=== PATIENT | male | born 1985 | race Caucasian/White ===

== ENCOUNTER 2017-03-22 14:20 | Emergency (ER) | payer OTHER ==
[~2017-03-22] VITALS: Ht 193 cm; Wt 79.5 kg
[2017-03-22 14:22] VITALS: BP 105/54; PULSE 86; RESP 14; TEMP 98.6; O2SAT 97
[2017-03-22] MEDS ORDERED: GABA300C5 PO (14:58)
[2017-03-22] MEDS ORDERED: BUSP15TA PO (14:58)
[2017-03-22] MEDS ORDERED: SERO300T PO (14:58)
--- NOTE | 2017-03-22 15:58 | PD ---
HPI Chief Complaint: Psychiatric Symptoms Time Seen by Provider: 15:18 Travel History International Travel<30 days: No Contact w/Intl Traveler<30days: No Traveled to known affect area: No History of Present Illness HPI 31-year-old male that presents to the ED for evaluation of voluntary psych. Patient reports that his been having suicidal thoughts secondary to substance abuse. Per patient his been in and out of addiction for some time. Per patient he last is about 24 hours ago. He called the police who brought him here. Denies any chest or shortness of breath. Per patient he has not done any IV for about 4 months but he did snort cocaine and heroine yesterday. Denies any other medical issues. Per patient he takes no medications currently. He comes here for help. He can here voluntarily and noticed of Amin act. Denies any injuries or cuts. Symptoms appear to have worsened secondary to current stressors from losing his job. Allergy to cheese. PFSH Past Medical History Anxiety: Yes Diminished Hearing: No Immunizations Current: Yes Past Surgical History Surgical History: No Previous Surgery Social History Alcohol Use: Yes (SOCIALLY) Tobacco Use: Yes (SOCIALLY) Substance Use: Yes (CRACK AND HERION 5 TIMES IN PAST MONTH. 90 DAYS CLEAN PRIOR. HX 10 YEARS ) Allergies-Medications (Allergen,Severity, Reaction): Coded Allergies: cheese (Verified Adverse Reaction, Unknown, Diarrhea, 03/22/17) Reported Meds & Prescriptions Reported Meds & Active Scripts Active Reported Gabapentin 300 Mg Cap 300 Mg PO TID Buspirone (Buspirone HCl) 15 Mg Tab 15 Mg PO BID Seroquel (Quetiapine Fumarate) 300 Mg Tab 300 Mg PO HS Review of Systems Except as stated in HPI: all other systems reviewed are Neg Physical Exam Narrative GENERAL: SKIN: Warm and dry. HEAD: Atraumatic. Normocephalic. EYES: Pupils equal and round. No scleral icterus. No injection or drainage. ENT: No nasal bleeding or discharge. Mucous membranes pink and moist. Tongue is midline. No uvula deviation. NECK: Trachea midline. No JVD. CARDIOVASCULAR: Regular rate and rhythm. No murmurs, S3, S4. RESPIRATORY: No accessory muscle use. Clear to auscultation. Breath sounds equal bilaterally. GASTROINTESTINAL: Abdomen soft, non-tender, nondistended. Hepatic and splenic margins not palpable. MUSCULOSKELETAL: Extremities without clubbing, cyanosis, or edema. No obvious deformities. Full range of motion of the upper and lower extremities bilaterally. 2+ pulses bilaterally. NEUROLOGICAL: Awake and alert. No obvious cranial nerve deficits. Motor grossly within normal limits. Five out of 5 muscle strength in the arms and legs. Normal speech. PSYCHIATRIC: Appropriate mood and affect; insight and judgment normal. Data Data Last Documented VS Vital Signs Date Time Temp Pulse Resp B/P (MAP) Pulse Ox O2 Delivery O2 Flow Rate FiO2 03/22/17 14:22 98.6 86 14 105/54 (71) 97 Orders Orders Diet Regular Basic (03/22/17 Dinner) Complete Blood Count With Diff (03/22/17 15:18) Comprehensive Metabolic Panel (03/22/17 15:18) Thyroid Stimulating Hormone (03/22/17 15:18) Psych Screen (03/22/17 15:18) Drug Screen, Random Urine (03/22/17 15:18) Alcohol (Ethanol) (03/22/17 15:18) Salicylates (Aspirin) (03/22/17 15:18) Tylenol (Acetaminophen) (03/22/17 15:18) MDM Medical Decision Making Medical Screen Exam Complete: Yes Emergency Medical Condition: Yes Medical Record Reviewed: Yes Differential Diagnosis Depression versus suicidal ideation versus anxiety versus adjustment disorder versus mood disorder versus bipolar disorder versus schizophrenia versus paranoid disorder versus psychosis versus substance abuse versus alcohol abuse versus alcohol induced psychosis versus homicidality addition versus cutting versus personality disorder Narrative Course 31-year-old male that presents to the ED for evaluation of psych. Patient was properly examined and was found to have signs and symptoms consistent with psychiatric illness. Likely from polysubstance abuse. Labs were drawn. Patient was medically cleared. Okay to be seen by psych. Mental health screening was discussed with the patient. Diagnosis Primary Impression: Polysubstance abuse Gen Vieira Mar 22, 2017 15:58
[2017-03-22 15:59] LABS: BASOPHIL % 0.4 % (0.0-2.0); EOSINOPHIL % 0.5 % (0.0-4.0); HEMOGLOBIN 13.5 GM/DL (13.0-17.0); LYMPH % 32.2 % (9.0-44.0); LYMPHOCYTE # 2.7 TH/MM3 (1.0-4.8); MEAN CELL VOLUME 84.3 FL (80.0-100.0); MEAN CORPUSCULAR HEMOGLOBIN 29.9 PG (27.0-34.0); MEAN CORPUSCULAR HGB CONC 35.4 % (32.0-36.0); MEAN PLATELET VOLUME 9.1 FL (7.0-11.0); MONO % 8.2 % (0.0-8.0); MONOCYTE # 0.7 TH/MM3 (0-0.9); NEUT % 58.7 % (16.0-70.0); PLATELET COUNT 229 TH/MM3 (150-450); RED BLOOD COUNT 4.51 MIL/MM3 (4.50-5.90); RED CELL DISTRIBUTION WIDTH 13.1 % (11.6-17.2); WHITE BLOOD COUNT 8.5 TH/MM3 (4.0-11.0)
[2017-03-22 16:24] LABS: ALBUMIN 4.3 GM/DL (3.4-5.0); ALKALINE PHOSPHATASE 51 U/L (45-117); ALT (GPT) 13 U/L (12-78); AST (GOT) 21 U/L (15-37); BICARBONATE 28.3 MEQ/L (21.0-32.0); BLOOD UREA NITROGEN 10 MG/DL (7-18); CALCIUM 9.3 MG/DL (8.5-10.1); CHLORIDE 101 MEQ/L (98-107); CREATININE 0.85 MG/DL (0.60-1.30); GLOMERULAR FILTRATION RATE 107 ML/MIN (>89); GLUCOSE,RANDOM 82 MG/DL (74-106); SODIUM (NA) 137 MEQ/L (136-145); TOTAL BILIRUBIN ADULT 1.6 MG/DL (0.2-1.0); TOTAL PROTEIN 7.2 GM/DL (6.4-8.2)
[2017-03-22 16:26] LABS: ACETAMINOPHEN LESS THAN 2.0 MCG/ML (10.0-30.0)
[2017-03-22 18:35] VITALS: BP 106/56; PULSE 69; RESP 20
[2017-03-22 22:06] VITALS: BP 110/61; PULSE 53; RESP 18; TEMP 99.9; O2SAT 99
[2017-03-23 02:03] VITALS: BP 94/55; PULSE 60; RESP 18; TEMP 99.1; O2SAT 100
[2017-03-23 06:33] VITALS: BP 104/57; PULSE 51; RESP 18; TEMP 98.5; O2SAT 99
--- NOTE | 2017-03-23 13:37 | PD ---
History of Present Illness Chief Complaint: Psychiatric Symptoms Time Seen by Provider: 13:20 Travel History International Travel<30 Days: No Contact w/Intl Traveler<30days: No Known affected area: No Legal Status Legal Status: Voluntary History of Present Illness: History of Present Illness HPI 31-year-old male with no psychiatric history and history of substance abuse that presents to the ED on a voluntary basis requesting a psychiatric evaluation . He reported to the ED provider that he was having suicidal thoughts secondary to substance abuse. He called the police for help and they brought him here. The patient was monitored in secure environment and presented no behavioral concerns and no suicidality. Electronic medical record is reviewed. No previous contact with [facility] psychiatry. Current toxicology is positive for opiates and cocaine. Patient is seen in [facility]. He is alert, oriented, calm and engaging. Speech is clear, logical, goal-directed. There is no psychosis, no ochoa or hypomania. The patient states that he had been staying at a sober living facility and got kicked out due to several reasons including missing curfew and a dirty urine. He was told he could not go back until he was detoxed. He is requesting now for a detox services as well as continue substance abuse treatment. He states that he wants to go back to [facility] once he meets the requirements for readmission to their sober living house. There is no suicidal or homicidal ideation, intent or plan. Does not present any evidence of any unstable mental illness. PFSH Past Medical History Anxiety: Yes Diminished Hearing: No Immunizations Current: Yes Past Surgical History Surgical History: No Previous Surgery Psychiatric History Psychiatric History Hx Psychiatric Treatment: Denies any previous psychiatric history. Does report one previous Amin act in context of substance abuse and after he had nowhere else to stay because his family was not supportive. History of Inpatient Treatment: No Guns or firearms in home: No Social History Single male originally from [place]. Staying at a sober living facility. Hx Alcohol Use: Yes (SOCIALLY) Hx Tobacco Use: Yes (SOCIALLY) Hx Substance Use: Yes (CRACK AND HERION 5 TIMES IN PAST MONTH. 90 DAYS CLEAN PRIOR. HX 10 YEARS ) Substance Use Type: Crack, Marijuana, Heroin, Cocaine Hx of Substance Use Treatment: Yes (ten-year history of heroin abuse. At least 5 admissions for substance abuse.) Family Psychiatric History Negative Allergies-Medications (Allergen,Severity, Reaction): Coded Allergies: cheese (Verified Adverse Reaction, Unknown, Diarrhea, 03/22/17) Reported Meds & Prescriptions Reported Meds & Active Scripts Active Reported Gabapentin 300 Mg Cap 300 Mg PO TID Buspirone (Buspirone HCl) 15 Mg Tab 15 Mg PO BID Seroquel (Quetiapine Fumarate) 300 Mg Tab 300 Mg PO HS Review of Systems Psychiatric: DENIES: Anxiety, Confusion, Mood changes, Depression, Hallucinations, Agitation, Suicidal Ideation, Homicidal Ideation, Delusions Except as stated in HPI: all other systems reviewed are Neg Mental Status Examination Appearance: Appropriate (in hospital attire and maintaining hygiene) Consciousness: Alert Orientation: x4 Motor Activity: Normal gait Speech: Unremarkable Language: Adequate Fund of Knowledge: Adequate Attention and Concentration: Adequate Memory: Unremarkable Mood: Appropriate Affect: Appropriate Thought Process & Associations: Intact, Logical, Goal directed Thought Content: Appropriate Hallucination Type: None Delusion Type: None Suicidal Ideation: No Suicidal Plan: No Suicidal Intention: No Homicidal Ideation: No Homicidal Plan: No Homicidal Intention: No Insight: Fair Judgment: Adequate MDM Medical Decision Making Medical Record Reviewed: Yes Assessment/Plan 31-year-old male with no previous psychiatric history and history of substance abuse with drug of choice being heroin and cocaine, who in context of being discharged from sober living facility after he tested positive for heroin and cocaine, called the police to bring him to the hospital for psychiatric evaluation. The patient reported to ED provider that he was having suicidal thoughts. The patient presents no evidence of unstable mental illness as defined under the Amin act. He has presented no behavioral concerns and no suicidality while under observation. The patient is future oriented and is wanting to have detox so that he can return to his sober living facility in the next 3 days. He I saps bus passes to [facility] where he can be provided substance abuse treatment that he is looking for. The patient is psychiatrically clear for discharge. Orders Orders Diet Regular Basic (03/22/17 Dinner) Complete Blood Count With Diff (03/22/17 15:18) Comprehensive Metabolic Panel (03/22/17 15:18) Thyroid Stimulating Hormone (03/22/17 15:18) Psych Screen (03/22/17 15:18) Drug Screen, Random Urine (03/22/17 15:18) Alcohol (Ethanol) (03/22/17 15:18) Salicylates (Aspirin) (03/22/17 15:18) Tylenol (Acetaminophen) (03/22/17 15:18) Diet Regular Basic (03/23/17 Breakfast) Diet Regular Basic (03/23/17 Lunch) Results Vital Signs Date Time Temp Pulse Resp B/P (MAP) Pulse Ox O2 Delivery O2 Flow Rate FiO2 03/23/17 06:33 98.5 51 18 104/57 (73) 99 Room Air 03/23/17 02:03 99.1 60 18 94/55 (68) 100 Room Air 03/22/17 22:06 99.9 53 18 110/61 (77) 99 Room Air 03/22/17 18:35 69 20 106/56 (73) Room Air 03/22/17 14:22 98.6 86 14 105/54 (71) 97 Laboratory Tests Test 03/22/17 15:35 03/23/17 10:00 White Blood Count 8.5 Red Blood Count 4.51 Hemoglobin 13.5 Hematocrit 38.0 Mean Corpuscular Volume 84.3 Mean Corpuscular Hemoglobin 29.9 Mean Corpuscular Hemoglobin Concent 35.4 Red Cell Distribution Width 13.1 Platelet Count 229 Mean Platelet Volume 9.1 Neutrophils (%) (Auto) 58.7 Lymphocytes (%) (Auto) 32.2 Monocytes (%) (Auto) 8.2 Eosinophils (%) (Auto) 0.5 Basophils (%) (Auto) 0.4 Neutrophils # (Auto) 5.0 Lymphocytes # (Auto) 2.7 Monocytes # (Auto) 0.7 Eosinophils # (Auto) 0.0 Basophils # (Auto) 0.0 CBC Comment DIFF FINAL Differential Comment Blood Urea Nitrogen 10 Creatinine 0.85 Random Glucose 82 Total Protein 7.2 Albumin 4.3 Calcium Level 9.3 Alkaline Phosphatase 51 Aspartate Amino Transf (AST/SGOT) 21 Alanine Aminotransferase (ALT/SGPT) 13 Total Bilirubin 1.6 Sodium Level 137 Potassium Level 3.7 Chloride Level 101 Carbon Dioxide Level 28.3 Anion Gap 8 Estimat Glomerular Filtration Rate 107 Thyroid Stimulating Hormone 3rd Gen 0.879 Salicylates Level LESS THAN 1.7 Acetaminophen Level LESS THAN 2.0 Ethyl Alcohol Level LESS THAN 3 Urine Opiates Screen POS Urine Barbiturates Screen NEG Urine Amphetamines Screen NEG Urine Benzodiazepines Screen NEG Urine Cocaine Screen POS Urine Cannabinoids Screen NEG Diagnosis Primary Impression: Polysubstance abuse Additional Impressions: Cocaine abuse Opiate addiction Psychiatrically Cleared: Yes Med/ Other Pt Specific Info: No Meds Exist/No RX given Disposition: 01 DISCHARGE HOME Condition: Stable Problem Qualifiers Additional Impressions: Opiate addiction Qualified Codes: F11.20 - Opioid dependence, uncomplicated Paty Rojas [facility] Mar 23, 2017 13:37
--- NOTE | 2017-03-23 13:41 | PD ---
Physical Exam Date Seen by Provider: Mar 23, 2017 Time Seen by Provider: 13:39 Narrative 31-year-old male previously medically cleared for psychiatric evaluation, and has been seen by psychiatric staff and determined to be stable for discharge. Patient remains medically stable for discharge. Follow-up will be based on psychiatric note. Data Data Last Documented VS Vital Signs Date Time Temp Pulse Resp B/P (MAP) Pulse Ox O2 Delivery O2 Flow Rate FiO2 03/23/17 06:33 98.5 51 18 104/57 (73) 99 Room Air Orders Orders Diet Regular Basic (03/22/17 Dinner) Complete Blood Count With Diff (03/22/17 15:18) Comprehensive Metabolic Panel (03/22/17 15:18) Thyroid Stimulating Hormone (03/22/17 15:18) Psych Screen (03/22/17:18) Drug Screen, Random Urine (03/22/17:18) Alcohol (Ethanol) (03/22/17 15:18) Salicylates (Aspirin) (03/22/17 15:18) Tylenol (Acetaminophen) (03/22/17 15:18) Diet Regular Basic (03/23/17 Breakfast) Diet Regular Basic (03/23/17 Lunch) Labs Laboratory Tests Test 03/22/17 15:35 03/23/17 10:00 White Blood Count 8.5 TH/MM3 Red Blood Count 4.51 MIL/MM3 Hemoglobin 13.5 GM/DL Hematocrit 38.0 % Mean Corpuscular Volume 84.3 FL Mean Corpuscular Hemoglobin 29.9 PG Mean Corpuscular Hemoglobin Concent 35.4 % Red Cell Distribution Width 13.1 % Platelet Count 229 TH/MM3 Mean Platelet Volume 9.1 FL Neutrophils (%) (Auto) 58.7 % Lymphocytes (%) (Auto) 32.2 % Monocytes (%) (Auto) 8.2 % Eosinophils (%) (Auto) 0.5 % Basophils (%) (Auto) 0.4 % Neutrophils # (Auto) 5.0 TH/MM3 Lymphocytes # (Auto) 2.7 TH/MM3 Monocytes # (Auto) 0.7 TH/MM3 Eosinophils # (Auto) 0.0 TH/MM3 Basophils # (Auto) 0.0 TH/MM3 CBC Comment DIFF FINAL Differential Comment Blood Urea Nitrogen 10 MG/DL Creatinine 0.85 MG/DL Random Glucose 82 MG/DL Total Protein 7.2 GM/DL Albumin 4.3 GM/DL Calcium Level 9.3 MG/DL Alkaline Phosphatase 51 U/L Aspartate Amino Transf (AST/SGOT) 21 U/L Alanine Aminotransferase (ALT/SGPT) 13 U/L Total Bilirubin 1.6 MG/DL Sodium Level 137 MEQ/L Potassium Level 3.7 MEQ/L Chloride Level 101 MEQ/L Carbon Dioxide Level 28.3 MEQ/L Anion Gap 8 MEQ/L Estimat Glomerular Filtration Rate 107 ML/MIN Thyroid Stimulating Hormone 3rd Gen 0.879 uIU/ML Salicylates Level LESS THAN 1.7 MG/DL Acetaminophen Level LESS THAN 2.0 MCG/ML Ethyl Alcohol Level LESS THAN 3 MG/DL Urine Opiates Screen POS Urine Barbiturates Screen NEG Urine Amphetamines Screen NEG Urine Benzodiazepines Screen NEG Urine Cocaine Screen POS Urine Cannabinoids Screen NEG MDM Medical Record Reviewed: Yes Supervised Visit with DARNELL: Yes Narrative Course 31-year-old male previously medically cleared for psychiatric evaluation, and has been seen by psychiatric staff and determined to be stable for discharge. Patient remains medically stable for discharge. Follow-up will be based on psychiatric note. Diagnosis Primary Impression: Polysubstance abuse Additional Impressions: Cocaine abuse Opiate addiction Qualified Codes: F11.20 - Opioid dependence, uncomplicated Patient Instructions: General Instructions Disposition: 01 DISCHARGE HOME Condition: Stable Tee Meza Mar 23, 2017 13:41
== END 2017-03-23 13:54 | disposition home or self-care (01) ==
LOC: NEPJ 14:20
DX: F14.10 Cocaine abuse, uncomplicated (principal); F11.20 Opioid dependence, uncomplicated; R45.851 Suicidal ideations; F41.9 Anxiety disorder, unspecified; Z72.0 Tobacco use
CPT/HCPCS: 80053; 80307; 84443; 85025; 99283

== ENCOUNTER 2017-04-08 20:54 | Emergency (ER) | payer SELFPAY ==
[~2017-04-08] VITALS: Ht 185.4 cm; Wt 75.0 kg
[~2017-04-08 20:54] MED LIST: BUSP15TA PO; GABA300C5 PO; SERO300T PO
[2017-04-08 21:03] VITALS: BP 142/72; PULSE 74; RESP 16; TEMP 98; O2SAT 99
--- NOTE | 2017-04-08 21:13 | PD ---
HPI Chief Complaint: OD/ Ingestion Time Seen by Provider: 21:09 Travel History International Travel<30 days: No Contact w/Intl Traveler<30days: No Traveled to known affect area: No History of Present Illness HPI 31-year-old male with history of substance abuse presents to the emergency department by EMS transport after roommates reportedly found him in the bathroom unresponsive. EMS arrived and noted him to have depressed respirations and decreased level of consciousness. Patient was administered 0.8 of Narcan with return of GCS of 15. Patient admits to using heroin yesterday. Patient has history of heroin abuse and cocaine abuse. Patient is also followed us her [facility] facility for mood disorder/bipolar disorder. Patient has been out of his medications for several weeks to months. Patient does not report being suicidal or homicidal. Patient reportedly was sitting on the toilet when he was injecting heroin is unknown whether he was found on the floor or on the toilet. Patient denies any head pain neck pain back pain chest pain abdominal pain or extremity pain. PFSH Past Medical History Narrative Medical Anxiety polysubstance abuse; nursing notes reviewed Anxiety: Yes Diminished Hearing: No Immunizations Current: Yes Social History Alcohol Use: Yes (SOCIALLY) Tobacco Use: Yes (SOCIALLY) Substance Use: Yes (CRACK AND HERION 5 TIMES IN PAST MONTH. 90 DAYS CLEAN PRIOR. HX 10 YEARS ) Allergies-Medications (Allergen,Severity, Reaction): Coded Allergies: cheese (Verified Adverse Reaction, Unknown, Diarrhea, 04/08/17) Reported Meds & Prescriptions Reported Meds & Active Scripts Active Reported Gabapentin 300 Mg Cap 300 Mg PO TID Buspirone (Buspirone HCl) 15 Mg Tab 15 Mg PO BID Seroquel (Quetiapine Fumarate) 300 Mg Tab 300 Mg PO HS Review of Systems Except as stated in HPI: all other systems reviewed are Neg Physical Exam Narrative GENERAL: Well-developed well-nourished male no acute distress no respiratory distress; GCS 15 SKIN: Warm and dry. HEAD: Atraumatic. Normocephalic. No scalp soft tissue swelling hematoma abrasion or laceration EYES: Pupils equal and round. No scleral icterus. No injection or drainage. ENT: No nasal bleeding or discharge. Mucous membranes pink and moist. NECK: Trachea midline. No JVD. No midline tenderness to direct palpation along the cervical spine no bony step-off. CARDIOVASCULAR: Regular rate and rhythm. RESPIRATORY: No accessory muscle use. Clear to auscultation. Breath sounds equal bilaterally. GASTROINTESTINAL: Abdomen soft, non-tender, nondistended. Hepatic and splenic margins not palpable. MUSCULOSKELETAL: Extremities without clubbing, cyanosis, or edema. No obvious deformities. NEUROLOGICAL: Awake and alert. No obvious cranial nerve deficits. Motor grossly within normal limits. Five out of 5 muscle strength in the arms and legs. Normal speech. PSYCHIATRIC: Appropriate mood and affect; insight and judgment normal. Data Data Last Documented VS Vital Signs Date Time Temp Pulse Resp B/P (MAP) Pulse Ox O2 Delivery O2 Flow Rate FiO2 04/08/17 21:03 98.0 74 16 142/72 (95) 99 Orders Orders Electrocardiogram (04/08/17 21:09) Complete Blood Count With Diff (04/08/17 21:09) Comprehensive Metabolic Panel (04/08/17 21:09) Urinalysis - C+S If Indicated (04/08/17 21:09) Chest, Single Ap (04/08/17 21:09) Ct Brain W/O Iv Contrast(Rout) (04/08/17 21:09) Iv Access Insert/Monitor (04/08/17 21:09) Ecg Monitoring (04/08/17 21:09) Oximetry (04/08/17 21:09) Psych Screen (04/08/17 21:09) Sodium Chloride 0.9% Flush (Ns Flush) (04/08/17 21:15) Drug Screen, Random Urine (04/08/17 21:09) Alcohol (Ethanol) (04/08/17 21:09) Salicylates (Aspirin) (04/08/17 21:09) Tylenol (Acetaminophen) (04/08/17 21:09) Potassium Chloride (Kcl) (04/08/17 22:30) D-Dimer (04/08/17 22:50) Magnesium (Mg) (04/08/17 21:20) Ed Discharge Order (04/09/17 01:56) Labs Laboratory Tests Test 04/08/17 21:20 04/08/17 23:00 04/09/17 00:00 White Blood Count 6.2 TH/MM3 Red Blood Count 4.85 MIL/MM3 Hemoglobin 14.4 GM/DL Hematocrit 41.7 % Mean Corpuscular Volume 85.9 FL Mean Corpuscular Hemoglobin 29.7 PG Mean Corpuscular Hemoglobin Concent 34.6 % Red Cell Distribution Width 13.4 % Platelet Count 224 TH/MM3 Mean Platelet Volume 9.7 FL Neutrophils (%) (Auto) 61.2 % Lymphocytes (%) (Auto) 27.4 % Monocytes (%) (Auto) 8.4 % Eosinophils (%) (Auto) 2.5 % Basophils (%) (Auto) 0.5 % Neutrophils # (Auto) 3.8 TH/MM3 Lymphocytes # (Auto) 1.7 TH/MM3 Monocytes # (Auto) 0.5 TH/MM3 Eosinophils # (Auto) 0.2 TH/MM3 Basophils # (Auto) 0.0 TH/MM3 CBC Comment DIFF FINAL Differential Comment Blood Urea Nitrogen 5 MG/DL Creatinine 0.87 MG/DL Random Glucose 174 MG/DL Total Protein 6.7 GM/DL Albumin 3.9 GM/DL Calcium Level 8.8 MG/DL Magnesium Level 2.0 MG/DL Alkaline Phosphatase 88 U/L Aspartate Amino Transf (AST/SGOT) 85 U/L Alanine Aminotransferase (ALT/SGPT) 51 U/L Total Bilirubin 1.4 MG/DL Sodium Level 137 MEQ/L Potassium Level 3.1 MEQ/L Chloride Level 99 MEQ/L Carbon Dioxide Level 28.0 MEQ/L Anion Gap 10 MEQ/L Estimat Glomerular Filtration Rate 104 ML/MIN Salicylates Level 1.9 MG/DL Acetaminophen Level LESS THAN 2.0 MCG/ML Ethyl Alcohol Level LESS THAN 3 MG/DL D-Dimer Quantitative (PE/DVT) 0.43 MG/L FEU Urine Color YELLOW Urine Turbidity CLEAR Urine pH 6.0 Urine Specific [place] 1.022 Urine Protein 30 mg/dL Urine Glucose (UA) NEG mg/dL Urine Ketones 150 mg/dL Urine Occult Blood NEG Urine Nitrite NEG Urine Bilirubin NEG Urine Urobilinogen 2.0 MG/DL Urine Leukocyte Esterase NEG Urine RBC LESS THAN 1 /hpf Urine WBC 1 /hpf Urine Squamous Epithelial Cells <1 /hpf Urine Bacteria RARE /hpf Urine Hyaline Casts 28 /lpf Urine Granular Casts 3 /lpf Urine Mucus FEW /lpf Microscopic Urinalysis Comment CULT NOT INDICATED Urine Opiates Screen POS Urine Barbiturates Screen NEG Urine Amphetamines Screen NEG Urine Benzodiazepines Screen NEG Urine Cocaine Screen POS Urine Cannabinoids Screen NEG MDM Medical Decision Making Medical Screen Exam Complete: Yes Emergency Medical Condition: Yes Medical Record Reviewed: Yes Interpretation(s) EKG: Sinus bradycardia rate 50 RBBB Last Impressions Head CT 04/08/172108 Signed Impressions: Service Date/Time: Saturday, April 08, 2017 22:00 - CONCLUSION: No acute disease. Fabiano Vallejo MD Chest X-Ray 04/08/172108 Signed Impressions: Service Date/Time: Saturday, April 08, 2017 21:30 - CONCLUSION: No acute disease. Fabiano Vallejo MD CBC & BMP Diagram 04/08/17 21:20 Total Protein 6.7, Albumin 3.9, Calcium Level 8.8, Alkaline Phosphatase 88, Aspartate Amino Transf (AST/SGOT) 85 H, Alanine Aminotransferase (ALT/SGPT) 51, Total Bilirubin 1.4 H Vital Signs Date Time Temp Pulse Resp B/P (MAP) Pulse Ox O2 Delivery O2 Flow Rate FiO2 04/08/17 21:03 98.0 74 16 142/72 (95) 99 Differential Diagnosis Polysubstance abuse, alcohol intoxication, heroin abuse/overdose Narrative Course Patient placed on cardiac/vascular sonographer IV access obtained specimens collected and sent for resulting; as known is present to identify where the patient did or did not have a fall CT brain noncontrast will be ordered Patient's potassium replaced with oral potassium 40 mEq by mouth It's now 1 AM patient remains hemodynamically stable and GCS has remained 15 since arrival to the emergency department Patient will be seen by psych screener; voluntarily Diagnosis Primary Impression: Polysubstance abuse Additional Impression: Hypokalemia Referrals: [facility] for appointment Patient Instructions: General Instructions Additional Instructions: Discontinue substance abuse Follow-up with [facility] for detox resources Return to the emergency department as needed add potassium containing foods and beverages to dietary intake Disposition: 01 DISCHARGE HOME Condition: Stable Katrin Briones MD Apr 08, 2017 21:13
[2017-04-08] MEDS ORDERED: SODIUM CHLORIDE 0.9% FLUSH 10 ML FLUSH IVF PRN (21:15)
--- NOTE | 2017-04-08 21:42 | RADRPT ---
EXAM DATE/TIME: 04/08/2017 21:30 [place] COMPARISON: No previous studies available for comparison. INDICATIONS : Evaluate lung status. Possible overdose. MEDICAL HISTORY : None. SURGICAL HISTORY : None. ENCOUNTER: Initial ACUITY: 1 day PAIN SCORE: 0/10 LOCATION: Bilateral chest FINDINGS: A single view of the chest demonstrates the lungs to be symmetrically aerated without evidence of mas s, infiltrate or effusion. The cardiomediastinal contours are unremarkable. Osseous structures are intact. CONCLUSION: No acute disease. Fabiano Vallejo MD on April 08, 2017 at 21:41 Board Certified Radiologist. This report was verified electronically.
[2017-04-08 21:57] LABS: AUTOMATED NEUTROPHIL # 3.8 TH/MM3 (1.8-7.7); BASOPHIL % 0.5 % (0.0-2.0); EOSINOPHIL # 0.2 TH/MM3 (0-0.4); EOSINOPHIL % 2.5 % (0.0-4.0); HEMATOCRIT 41.7 % (39.0-51.0); HEMOGLOBIN 14.4 GM/DL (13.0-17.0); LYMPH % 27.4 % (9.0-44.0); LYMPHOCYTE # 1.7 TH/MM3 (1.0-4.8); MEAN CELL VOLUME 85.9 FL (80.0-100.0); MEAN CORPUSCULAR HEMOGLOBIN 29.7 PG (27.0-34.0); MEAN CORPUSCULAR HGB CONC 34.6 % (32.0-36.0); MEAN PLATELET VOLUME 9.7 FL (7.0-11.0); MONO % 8.4 % (0.0-8.0); MONOCYTE # 0.5 TH/MM3 (0-0.9); NEUT % 61.2 % (16.0-70.0); PLATELET COUNT 224 TH/MM3 (150-450); RED BLOOD COUNT 4.85 MIL/MM3 (4.50-5.90); RED CELL DISTRIBUTION WIDTH 13.4 % (11.6-17.2); WHITE BLOOD COUNT 6.2 TH/MM3 (4.0-11.0)
[2017-04-08 22:14] LABS: ALBUMIN 3.9 GM/DL (3.4-5.0); AST (GOT) 85 U/L (15-37); BLOOD UREA NITROGEN 5 MG/DL (7-18); CALCIUM 8.8 MG/DL (8.5-10.1); CHLORIDE 99 MEQ/L (98-107); CREATININE 0.87 MG/DL (0.60-1.30); GLOMERULAR FILTRATION RATE 104 ML/MIN (>89); GLUCOSE,RANDOM 174 MG/DL (74-106); SODIUM (NA) 137 MEQ/L (136-145)
[2017-04-08 22:15] LABS: ALT (GPT) 51 U/L (12-78)
[2017-04-08 22:17] LABS: ACETAMINOPHEN LESS THAN 2.0 MCG/ML (10.0-30.0); ALKALINE PHOSPHATASE 88 U/L (45-117); TOTAL BILIRUBIN ADULT 1.4 MG/DL (0.2-1.0); TOTAL PROTEIN 6.7 GM/DL (6.4-8.2)
--- NOTE | 2017-04-08 22:24 | RADRPT ---
EXAM DATE/TIME: 04/08/2017 22:00 [place] COMPARISON: No previous studies available for comparison. INDICATIONS : Altered mental status, overdose. RADIATION DOSE: 32.62 CTDIvol (mGy) MEDICAL HISTORY : None SURGICAL HISTORY : None. ENCOUNTER: Initial ACUITY: 1 day PAIN SCALE: 0/10 LOCATION: cranial TECHNIQUE: Multiple contiguous axial images were obtained of the head. Using automated exposure control and adj ustment of the mA and/or kV according to patient size, radiation dose was kept as low as reasonably a chievable to obtain optimal diagnostic quality images. DICOM format image data is available electro nically for review and comparison. FINDINGS: CEREBRUM: The ventricles are normal for age. No evidence of midline shift, mass lesion, hemorrhage or acute in farction. No extra-axial fluid collections are seen. POSTERIOR FOSSA: The cerebellum and brainstem are intact. The 4th ventricle is midline. The cerebellopontine angle i s unremarkable. EXTRACRANIAL: The visualized portion of the orbits is intact. SKULL: The calvaria is intact. No evidence of skull fracture. CONCLUSION: No acute disease. Fabiano Vallejo MD on April 08, 2017 at 22:23 Board Certified Radiologist. This report was verified electronically.
[2017-04-08] MEDS ORDERED: POTASSIUM CHLORIDE 20 MEQ CONTROLLED RELEASE TAB PO ONE (22:30)
[2017-04-09 00:21] LABS: BACTERIA, URINE RARE /hpf; BILIRUBIN, URINE NEG (NEG); BLOOD, URINE NEG (NEG); GLUCOSE,URINE NEG (NEG); HYALINE CAST, URINE 28 /lpf (RARE); KETONE, URINE 150 mg/dL (NEG); MUCUS URINE FEW /lpf (OCC); NITRITE,URINE NEG (NEG); SQUAMOUS EPITHELIAL CELL URINE <1 /hpf (0-5); URINE COLOR YELLOW (YELLW/STRAW); URINE LEUKOCYTE ESTERASE NEG (NEG)
--- NOTE | 2017-04-09 11:07 | EKG ---
Date Performed: 04/08/2017 Time Performed: 21:55:24 PTAGE: 31 years EKG: SINUS BRADYCARDIA POSSIBLE RIGHT VENTRICULAR CONDUCTION DELAY ABNORMAL QRS-T ANGLE PROLONGE D QT INTERVAL ABNORMAL ECG NO PREVIOUS TRACING DOCTOR: Enzo Morillo Interpretating Date/Time 04/10/2017 07:02:42
--- NOTE | 2017-04-09 11:07 | EKG ---
Date Performed: 04/08/2017 Time Performed: 22:49:18 PTAGE: 31 years EKG: SINUS BRADYCARDIA WITH SINUS ARRHYTHMIA INDETERMINATE AXIS RIGHT BUNDLE BRANCH BLOCK LEFT P OSTERIOR FASCICULAR BLOCK ABNORMAL ECG Since the prior tracing, there has been no significant change PREVIOUS TRACING : 04/08/2017 21.55 DOCTOR: Enzo Morillo Interpretating Date/Time 04/09/2017 11:05:57
== END 2017-04-09 02:05 | disposition home or self-care (01) ==
LOC: NEPC 20:54
DX: F11.10 Opioid abuse, uncomplicated (principal); F14.10 Cocaine abuse, uncomplicated; E87.6 Hypokalemia; R94.31 Abnormal electrocardiogram [ECG] [EKG]
CPT/HCPCS: 70450; 71045; 80053; 80307; 81001; 83735; 85025; 85379; 93005